=== PATIENT | female | born 1945 | race Caucasian/White ===

== ENCOUNTER 2019-06-05 12:37 | Outpatient (CLI) | payer MEDICARE ==
[~2019-06-05 12:37] MED LIST: CIPR500T87 PO; DICL75TA3 PO; ESTR0.5T PO; HYDR-3237 PO; KRIL1CAP5 PO; LOSA1TAB19 PO; MULT-658 PO; MUPI22OI2 NAS; OXYC5CAP2 PO; ROSU5TAB PO
[2019-06-05 14:24] LABS: MICROSCOPIC AUTO
[2019-06-05 14:25] LABS: ALANINE AMINOTRANSFERASE 39 U/L (12-78); ALBUMIN 3.5 g/dL (3.4-5.0); ANION GAP 3 mmol/L (5-15); CALCIUM 9.4 mg/dL (8.5-10.1); CHLORIDE 110 mmol/L (98-107); CREATININE 0.86 mg/dL (0.55-1.02)
[2019-06-05 14:27] LABS: ALKALINE PHOSPHATASE 117 U/L (45-117); BILIRUBIN,TOTAL 0.4 mg/dL (0.2-1.0); TOTAL PROTEIN 7.9 g/dL (6.4-8.2)
[2019-06-09] MEDS ORDERED: ESOM20CA PO (10:02)
[2019-06-09] MEDS ORDERED: CRAN1CAP PO (10:02)
[2019-06-09] MEDS ORDERED: TURM500C7 PO (10:02)
[2019-06-09] MEDS ORDERED: LACT1CAP37 PO (10:02)
== END 2019-06-05 23:59 | disposition home or self-care (01) ==
LOC: STAR 12:37
PROVIDERS: ATTEND Orthopaedic Surgery
DX: Z01.818 Encounter for other preprocedural examination (principal); S83.282A Other tear of lateral meniscus, current injury, left knee, initial encounter; S83.242A Other tear of medial meniscus, current injury, left knee, initial encounter; Z88.0 Allergy status to penicillin; Z88.8 Allergy status to other drugs, medicaments and biological substances; X58.XXXA Exposure to other specified factors, initial encounter; Y93.89 Activity, other specified; Y92.89 Other specified places as the place of occurrence of the external cause; Y99.8 Other external cause status
CPT/HCPCS: 36415; 80053; 81001; 87077; 87086; 87186; 93005

== ENCOUNTER 2019-06-12 10:52 | Day surgery (SDC) | payer MEDICARE ==
[~2019-06-12] VITALS: Ht 160 cm; Wt 97.0 kg
[~2019-06-12 10:52] MED LIST changes: +CRAN1CAP PO; +ESOM20CA PO; +LACT1CAP37 PO; +LIDOCAINE 1%-EPI 1:100K, 20ML ONE; +ROPIvacaine/PF 0.5%, 30 ML ONE; +TURM500C7 PO
[2019-06-12] MEDS ORDERED: ACETAMINOPHEN 500 MG TABLET PO ONE (11:00)
[2019-06-12] MEDS ORDERED: LACTATED RINGERS 1,000 ML IV SCH (11:05)
[2019-06-12] MEDS ORDERED: FENTANYL PF 100 MCG/2ML ONE ×2 (11:29→12:36)
[2019-06-12 11:33] VITALS: BP 117/63
[2019-06-12] MEDS ORDERED: CLINDAMYCIN 150 MG/ML, 6ML ONE (11:44)
[2019-06-12] MEDS ORDERED: ONDANSETRON 2MG/ML, 2ML ONE (12:14)
[2019-06-12] MEDS ORDERED: DEXAMETHASONE 4 MG/ML, 1ML ONE (12:14)
[2019-06-12] MEDS ORDERED: KETOROLAC 30 MG/1 ML ONE (12:14)
[2019-06-12] MEDS ORDERED: PROPOFOL 10 MG/ML, 20ML ONE (12:14)
[2019-06-12] MEDS ORDERED: HYDROcodone/APAP 7.5-325MG/15ML UDC ONE (12:36)
[2019-06-12] MEDS: FENTANYL PF 100 MCG/2ML IV PRN ×2 (12:39→12:45)
[2019-06-12] MEDS ORDERED: HYDROmorphone 1 MG/ML, 1ML INJ ONE (12:41)
[2019-06-12] MEDS: HYDROmorphone 1 MG/ML, 1ML INJ IVPush PRN ×2 (12:50→12:57)
[2019-06-12] MEDS ORDERED: MIDAZOLAM 1 MG/ML, 2ML IV PRN (13:00)
[2019-06-12] MEDS ORDERED: HYDROcodone/APAP 7.5-325MG/15ML UDC PO PRN (13:00)
[2019-06-12] MEDS ORDERED: METOPROLOL 1 MG/ML, 5ML IV PRN (13:00)
[2019-06-12] MEDS ORDERED: PROMETHAZINE 25 MG/ML, 1ML IV PRN (13:00)
[2019-06-12] MEDS ORDERED: MEPERIDINE/PF 25MG/ML,1ML IVPush PRN (13:00)
== END 2019-06-12 15:15 | disposition home or self-care (01) ==
LOC: OUT 10:52
PROVIDERS: ATTEND Orthopaedic Surgery
DX: S83.242A Other tear of medial meniscus, current injury, left knee, initial encounter (principal); S83.272A Complex tear of lateral meniscus, current injury, left knee, initial encounter; M17.12 Unilateral primary osteoarthritis, left knee; M65.862 Other synovitis and tenosynovitis, left lower leg; K21.9 Gastro-esophageal reflux disease without esophagitis; J44.9 Chronic obstructive pulmonary disease, unspecified; E66.9 Obesity, unspecified; Z68.37 Body mass index [BMI] 37.0-37.9, adult; Z88.1 Allergy status to other antibiotic agents; Z88.0 Allergy status to penicillin; Z88.8 Allergy status to other drugs, medicaments and biological substances; Z87.39 Personal history of other diseases of the musculoskeletal system and connective tissue; Z85.828 Personal history of other malignant neoplasm of skin; Z87.891 Personal history of nicotine dependence; X58.XXXA Exposure to other specified factors, initial encounter; Y93.89 Activity, other specified; Y92.89 Other specified places as the place of occurrence of the external cause; Y99.8 Other external cause status
CPT/HCPCS: 29880; J1100; J1170; J1885; J2405; J2704; J2795; J3010; J3490; J7120

== ENCOUNTER → 2020-05-27 | Outpatient (CLI) | payer MEDICARE ==
[~2020-05-27] MED LIST changes: +ACET-1600 PO; +ESTR42.58 TP; +FAMO10TA90 PO; +FLUT1AER INH; +HYDR-3240 PO; -LIDOCAINE 1%-EPI 1:100K, 20ML ONE; +MONT10TA96 PO; +NAPR220C2 PO; -ROPIvacaine/PF 0.5%, 30 ML ONE; +UMEC62.5 INH; +losartan/HCTZ PO
[2020-05-27 13:51] LABS: BASOPHILS % (AUTO) 1 % (0-1); EOSINOPHILS % (AUTO) 3 % (1-7); LYMPHOCYTES % (AUTO) 23 % (22-44); MEAN CORPUSCULAR HEMOGLOBIN 28.6 pg (27.0-34.8); MEAN CORPUSCULAR HGB CONC 32.8 g/dL (32.4-35.8); MEAN PLATELET VOLUME 7.5 fL (7.4-10.4); MONOCYTES % (AUTO) 8 % (2-9); NEUTROPHILS % (AUTO) 65 % (42-75); PLATELET COUNT 352 x10^3/uL (130-400); RED BLOOD COUNT 5.44 x10^6/uL (3.82-5.3); RED CELL DISTRIBUTION WIDTH 14.6 % (9.6-15.2)
[2020-05-27 14:01] LABS: MD NO
[2020-05-27 14:06] LABS: CHLORIDE 108 mmol/L (98-107)
[2020-05-27 14:16] LABS: ALANINE AMINOTRANSFERASE 36 U/L (12-78); ALBUMIN 3.6 g/dL (3.4-5.0); ALKALINE PHOSPHATASE 113 U/L (45-117); ANION GAP 6 mmol/L (5-15); BILIRUBIN,TOTAL 0.7 mg/dL (0.2-1.0); CALCIUM 9.3 mg/dL (8.5-10.1); CREATININE 0.92 mg/dL (0.55-1.02); TOTAL PROTEIN 7.7 g/dL (6.4-8.2)
== END | disposition home or self-care (01) ==
LOC: STAR 11:10
PROVIDERS: ATTEND Orthopaedic Surgery
DX: Z01.812 Encounter for preprocedural laboratory examination (principal); Z20.828 Contact with and (suspected) exposure to other viral communicable diseases; M25.562 Pain in left knee; M17.12 Unilateral primary osteoarthritis, left knee
CPT/HCPCS: 80053; 85025; 87081; 87635; 93005

== ENCOUNTER 2020-06-02 06:31 | Observation (INO) | payer MEDICARE ==
[~2020-06-02] VITALS: Ht 160 cm; Wt 96.4 kg
[~2020-06-02 06:31] MED LIST changes: +DEXAMETHASONE 4 MG/ML, 1ML IVPush ONE
[2020-06-02] MEDS ORDERED: TRANEXAMIC ACID 100 MG/ML, 10ML ONE ×2 (06:34→08:43)
[2020-06-02] MEDS ORDERED: KETOROLAC 60 MG/2 ML ONE (06:34)
[2020-06-02] MEDS ORDERED: EPINEPHRINE 1 MG/ML, 1ML ONE (06:35)
[2020-06-02] MEDS ORDERED: ROPIvacaine/PF 0.2%, 20 ML ONE (06:35)
[2020-06-02] MEDS ORDERED: SODIUM CHLORIDE 0.9% 50 ML ONE (06:35)
[2020-06-02] MEDS ORDERED: LACTATED RINGERS 1,000 ML IV SCH (07:00)
[2020-06-02] MEDS ORDERED: CHLORHEXIDINE 15 ML UDC MM ONE (07:00)
[2020-06-02] MEDS ORDERED: MIDAZOLAM 1 MG/ML, 2ML ONE ×2 (08:14→09:22)
[2020-06-02] MEDS ORDERED: FENTANYL PF 250 MCG/5ML ONE (08:14)
[2020-06-02] MEDS ORDERED: CLINDAMYCIN 150 MG/ML, 6ML ONE (09:31)
[2020-06-02] MEDS ORDERED: PROPOFOL 10 MG/ML, 20ML ONE (09:34)
[2020-06-02] MEDS ORDERED: ROCURONIUM 10 MG/ML,10ML ONE (09:34)
[2020-06-02] MEDS ORDERED: SUCCINYLCHOLINE 20 MG/ML, 10ML ONE (09:34)
[2020-06-02] MEDS ORDERED: DEXAMETHASONE 4 MG/ML, 1ML ONE (09:34)
[2020-06-02] MEDS ORDERED: ONDANSETRON 2MG/ML, 2ML ONE (09:34)
[2020-06-02] MEDS ORDERED: ALBUTEROL SULFATE 2.5 MG/3 ML NPPB PRN (10:30)
[2020-06-02] MEDS ORDERED: METOCLOPRAMIDE 5 MG/ML, 2ML IV PRN (10:30)
[2020-06-02] MEDS ORDERED: LABETALOL 5MG/ML, 20ML IV PRN (10:30)
[2020-06-02] MEDS ORDERED: DIAZEPAM 5 MG/ML, 2ML IV PRN ×2 (10:30)
[2020-06-02] MEDS ORDERED: KETOROLAC 30 MG/1 ML IV PRN (10:30)
[2020-06-02] MEDS ORDERED: PROMETHAZINE 25 MG/ML, 1ML IV PRN (10:30)
[2020-06-02] MEDS ORDERED: ONDANSETRON 2MG/ML, 2ML IVPush PRN ×2 (10:30→11:00)
[2020-06-02] MEDS ORDERED: MEPERIDINE/PF 25MG/0.5ML IVPush PRN (10:30)
[2020-06-02] MEDS ORDERED: OXYcodone 5 MG/5 ML ORAL.SOL UDC PO PRN (10:30)
[2020-06-02] MEDS ORDERED: hydrALAzine 20 MG/ML, 1ML IV PRN (10:30)
[2020-06-02] MEDS ORDERED: BISACODYL 10 MG SUPP PR PRN (11:00)
[2020-06-02] MEDS ORDERED: MAGNESIUM HYDROXIDE 8%, 30ML UDC PO PRN (11:00)
[2020-06-02] MEDS ORDERED: HYDROcodone/APAP 10/325 MG TABLET PO PRN (11:00)
[2020-06-02] MEDS ORDERED: DIPHENHYDRAMINE 50 MG CAPSULE PO PRN (11:00)
[2020-06-02] MEDS ORDERED: DIAZEPAM 5 MG TABLET PO PRN (11:00)
[2020-06-02] MEDS ORDERED: PROMETHAZINE 25 MG/ML, 1ML IM PRN (11:00)
[2020-06-02] MEDS ORDERED: DIPHENHYDRAMINE 50 MG/ML, 1ML IVPush PRN (11:00)
[2020-06-02] MEDS ORDERED: PSYLLIUM PACKET PO PRN (11:00)
[2020-06-02] MEDS ORDERED: SENNA/DOCUSATE TABLET PO PRN (11:00)
[2020-06-02] MEDS: ACETAMINOPHEN 500 MG TABLET PO SCH ×3 (11:00→23:00)
[2020-06-02] MEDS ORDERED: POLYETHYLENE GLYCOL 17 GM PACKET PO PRN (11:00)
[2020-06-02] MEDS ORDERED: HYDROmorphone 1 MG/ML, 1ML INJ IVPush PRN (11:00)
[2020-06-02] MEDS ORDERED: ALUMINUM/MAG/SIMETHICONE 30 ML UDC PO PRN (11:00)
[2020-06-02] MEDS ORDERED: ONDANSETRON 4 MG TABLET PO PRN (11:00)
[2020-06-02] MEDS: KETOROLAC 30 MG/1 ML IV SCH ×3 (11:00→20:53)
[2020-06-02] MEDS ORDERED: PROMETHAZINE 12.5 MG SUPP PR PRN (11:00)
[2020-06-02] MEDS ORDERED: FENTANYL PF 100 MCG/2ML ONE ×2 (11:05→11:30)
[2020-06-02] MEDS: FENTANYL PF 100 MCG/2ML IV PRN ×4 (11:06→11:46)
[2020-06-02] MEDS ORDERED: HYDROcodone/APAP 7.5-325MG/15ML UDC ONE ×2 (11:14→11:20)
[2020-06-02] MEDS ORDERED: HYDROcodone/APAP 7.5-325MG/15ML UDC PO ONE (11:30)
[2020-06-02] MEDS ORDERED: METHOCARBAMOL 1,000 MG in DEXTROSE 5% 100 ML IV ONE (11:30)
[2020-06-02] MEDS: SODIUM CHLORIDE 0.9% 1,000 ML IV SCH ×2 (12:31→20:52)
[2020-06-02] MEDS: HYDROmorphone 1 MG/ML, 1ML INJ IV PRN ×3 (12:57→17:37)
[2020-06-02] MEDS ORDERED: KETOROLAC 30 MG/1 ML ONE (13:06)
[2020-06-02] MEDS ORDERED: HYDROcodone/APAP 5/325 TABLET ONE (14:12)
[2020-06-02] MEDS: HYDROcodone/APAP 5/325 TABLET PO PRN ×3 (14:13→23:03)
[2020-06-02] MEDS: ASPIRIN 81 MG TABLET EC PO SCH (19:01)
[2020-06-02] MEDS ORDERED: LOSA1TAB19 PO (19:16)
[2020-06-02] MEDS ORDERED: ROSU5TAB12 PO (19:16)
[2020-06-02 20:05] VITALS: BP 115/78
[2020-06-02] MEDS: DOCUSATE 100 MG CAPSULE PO SCH (20:44)
[2020-06-02] MEDS: CLINDAMYCIN PMX 600MG/50ML 50 ML IVPB SCH (20:44)
[2020-06-02 23:30] VITALS: BP 99/57
[2020-06-03] MEDS: HYDROcodone/APAP 5/325 TABLET PO PRN ×3 (03:06→11:30)
[2020-06-03 03:21] VITALS: BP 104/50
[2020-06-03] MEDS: ACETAMINOPHEN 500 MG TABLET PO SCH ×2 (05:00→11:00)
[2020-06-03] MEDS: CLINDAMYCIN PMX 600MG/50ML 50 ML IVPB SCH (05:01)
[2020-06-03] MEDS: ASPIRIN 81 MG TABLET EC PO SCH (05:48)
[2020-06-03] MEDS ORDERED: DEXAMETHASONE 4 MG/ML, 1ML IVPush ONE (06:00)
[2020-06-03 06:25] VITALS: BP 96/58
[2020-06-03] MEDS: DOCUSATE 100 MG CAPSULE PO SCH (07:44)
[2020-06-03] MEDS ORDERED: TAMSULOSIN 0.4 MG CAP.ER.24H PO ONE (08:00)
[2020-06-03] MEDS ORDERED: HYDR-3240 PO (08:56)
[2020-06-03] MEDS ORDERED: TRAM50TA2 PO (08:57)
[2020-06-03] MEDS ORDERED: LOSARTAN 50MG TABLET PO SCH (09:00)
[2020-06-03] MEDS ORDERED: LACTOBACILLUS CHEW TABLET PO SCH (09:00)
[2020-06-03] MEDS ORDERED: FAMOTIDINE 20 MG TABLET PO SCH (09:00)
[2020-06-03] MEDS ORDERED: FLUTICASONE/VILANTEROL 100-25MCG/INH INH SCH (09:00)
[2020-06-03] MEDS ORDERED: MONTELUKAST 10 MG TABLET PO SCH (09:00)
[2020-06-03] MEDS ORDERED: HYDROCHLOROTHIAZIDE 12.5 MG CAPSULE PO SCH (09:00)
== END 2020-06-03 12:01 | disposition home or self-care (01) ==
LOC: OUT 06:31 → ORIP 11:00 → 4NE 17:41 → DCLOUNGE 06-03 11:37
PROVIDERS: ADMIT Orthopaedic Surgery; ATTEND Orthopaedic Surgery
DX: M17.12 Unilateral primary osteoarthritis, left knee (principal); J43.9 Emphysema, unspecified; K21.9 Gastro-esophageal reflux disease without esophagitis; G47.30 Sleep apnea, unspecified; Z96.652 Presence of left artificial knee joint; Z88.0 Allergy status to penicillin; Z79.899 Other long term (current) drug therapy; Z87.891 Personal history of nicotine dependence
CPT/HCPCS: 27447; 36415; 73560; 85014; 85018; 96365; 96366; 96375; 96376; 97110; 97162; 97530; C1713; C1776; G0378; J0171; J0330; J1100; J1170; J1885; J2250; J2405; J2704; J2795; J2800; J3010; J7030; J7120; S0077